=== PATIENT | female | born 1970 | race Caucasian/White ===

== ENCOUNTER 2019-04-27 00:07 | Emergency (ER) | payer OTHER ==
[~2019-04-27] VITALS: Ht 175.3 cm; Wt 104.3 kg
[2019-04-27] MEDS ORDERED: FLEXERIL PO (01:33)
[2019-04-27] MEDS ORDERED: HYDROCODON-ACE1 EAC8 PO (01:33)
[2019-04-27 01:45] VITALS: BP 138/72
--- NOTE | 2019-04-27 12:20 | EKG ---
[place] [address] ELECTROCARDIOGRAM REPORT Name: LUZEUNICEBRUNILDALAYNE JOSEPH Room: [facility]#: [id number] Admission: 04/27/19 Attend Phys: Discharge: 04/27/19 Date of : 70 Report #: [id number] THIS REPORT FOR: //name// [facility] ED Test Date: 2019-04-27 Test Time: 00:31:42 Pat Name: LAYNE LI Department: Room: Gender: F Die Attacher: [place] : 1970 Requested By: Janine Nuñez Order Number: [id number] MD: Jason Swift Measurements Intervals [place] Rate: 77 P: 22 MS: 151 QRS: 7 QRSD: 102 T: 29 QT: 393 QTc: 445 Interpretive Statements Sinus rhythm Borderline low voltage, extremity leads Baseline wander in lead(s) I,III,aVL No previous ECG available for comparison Electronically Signed On 04-27-2019 12:20:22 FACTORY MAINTENANCE MANAGER by Jason Swift [email or web address] <ELECTRONICALLY SIGNED> By: Bahman Swift MD, [facility] 04/27/19 1220 Bahman Swift MD, FAC /EPI
== END 2019-04-27 01:45 | disposition still patient (30) ==
LOC: M.ERS 00:07
DX: M25.512 Pain in left shoulder (principal); Z98.890 Other specified postprocedural states; Z90.710 Acquired absence of both cervix and uterus

== ENCOUNTER 2020-09-05 20:09 | Emergency (ER) | payer OTHER ==
[~2020-09-05] VITALS: Ht 175.3 cm; Wt 115.7 kg
[~2020-09-05 20:09] MED LIST: FLEXERIL PO; HYDROCODON-ACE1 EAC8 PO
[2020-09-05] MEDS ORDERED: METFORMIN HCL500 M3 PO (20:22)
[2020-09-05] MEDS ORDERED: PHENTERMINE (20:23)
[2020-09-05 21:00] LABS: ABSOLUTE EOSINOPHILS 0.2 thou/uL (0.0-0.7); ABSOLUTE LYMPHOCYTES 2.5 thou/uL (0.8-5.3); ABSOLUTE MONOCYTES 0.5 thou/uL (0.0-1.2); ABSOLUTE NEUTROPHILS 4.1 thou/uL (1.6-8.1); BASOPHILS 0.6 %; EOSINOPHILS 2.1 %; HEMATOCRIT 37.6 % (37.0-47.0); HEMOGLOBIN 12.5 gm/dL (12.0-15.0); LYMPHOCYTES 33.5 %; MCH 27.8 pg (26.0-34.0); MCHC 33.2 g/dL (28.0-37.0); MCV 83.5 fL (80.0-100.0); MONOCYTES 7.1 %; MPV 9.4 fl. (7.2-11.1); NUCLEATED RBCS 0 /100WBC; PLATELET COUNT* 213 thou/uL (150-400); POLYS 56.7 %; WBC 7.3 thou/uL (4.0-11.0)
[2020-09-05 21:03] LABS: CALCIUM 8.5 mg/dL (8.5-10.1); CREATININE 0.9 mg/dL (0.6-1.3); POTASSIUM 3.2 mmol/L (3.5-5.1)
[2020-09-05 21:07] LABS: ALBUMIN 3.5 g/dL (3.4-5.0); TOTAL BILIRUBIN 0.2 mg/dL (<0.1-1.0); TOTAL PROTEIN 7.2 g/dL (6.4-8.2)
[2020-09-06] MEDS ORDERED: ZOFRAN ODT4 MG PO (01:00)
[2020-09-06 01:34] VITALS: BP 140/84
--- NOTE | 2020-09-06 09:54 | EKG ---
[place] [address] ELECTROCARDIOGRAM REPORT Name: LAYNE LI Room[facility] [id number] Admission: 09/05/20 Attend Phys: Discharge: 09/06/20 Date of : 70 Date of Service: 09/05/202134 Report #: [id number] THIS REPORT FOR: //name// [facility] ED Test Date: 2020-09-05 Test Time: 21:35:22 Pat Name: LAYNE LI Department: Room: Gender: F Primary Care Coordinator: [place] : 1970 Requested By: Rachel Wong Order Number: [id number] MD: Nate Jordan Measurements Intervals [place] Rate: 74 P: -19 CO: 140 QRS: -8 QRSD: 95 T: 24 QT: 439 QTc: 487 Interpretive Statements Sinus rhythm Inferior infarct, old Compared to ECG 04/27/2019 00:31:42 no change Electronically Signed On 09-06-2020 9:53:57 CDT by Nate Jordan [email or web address] <ELECTRONICALLY SIGNED> By: Nate Jordan MD, FAC 09/06/20 0953 [id number] Nate Jordan MD, [facility] /EPI
== END 2020-09-06 01:38 | disposition still patient (30) ==
LOC: M.ERS 20:09
PROVIDERS: Physician Assistant
DX: T40.7X1A Poisoning by cannabis (derivatives), accidental (unintentional), initial encounter (principal); R11.2 Nausea with vomiting, unspecified; Z90.710 Acquired absence of both cervix and uterus; Z98.890 Other specified postprocedural states; Y92.89 Other specified places as the place of occurrence of the external cause